=== PATIENT | female | born 1965 | race Caucasian/White ===

== ENCOUNTER 2019-06-28 20:28 | Outpatient (CLI) | payer OTHER, SELFPAY ==
[2019-06-30 15:06] LABS: Quest SARS-CoV-2 RNA NOT DETECTED (NOT DETECTED)
== END 2019-06-28 20:29 | disposition home or self-care (01) ==
LOC: LAB 20:31
PROVIDERS: Family Provider Family Medicine; Visit Provider Nurse Practitioner Family
DX: R50.9 Fever, unspecified (principal); J06.9 Acute upper respiratory infection, unspecified; Z20.828 Contact with and (suspected) exposure to other viral communicable diseases; Z71.89 Other specified counseling
CPT/HCPCS: 87400; 87635

== ENCOUNTER 2019-07-04 16:36 | Outpatient (CLI) | payer OTHER, SELFPAY ==
[2019-07-04 17:09] LABS: Basophils # 0.1 10^3/uL (0.0-0.1); Basophils % 0.8 %; Eosinophils # 0.3 10^3/uL (0.0-0.8); Eosinophils % 3.3 %; Hematocrit 38.8 % (37.0-47.0); Hemoglobin 12.3 g/dL (11.5-15.3); Lymphocytes # 2.4 10^3/uL (0.8-4.8); Lymphocytes % 32.2 %; Mean Corpuscular HGB Conc 31.7 g/dL (30.0-36.0); Mean Corpuscular Hemoglobin 30.8 pg (28.0-34.0); Mean Corpuscular Volume 97.2 fL (81-99); Mean Platelet Volume 9.8 fL (7.4-10.4); Monocytes # 0.9 10^3/uL (0.2-0.9); Monocytes % 11.6 %; Neutrophils # 3.9 10^3/uL (1.8-7.7); Nucleated Red Blood Cells % 0 %; Platelet Count 301 10^3/cmm (130-400); Red Blood Count 3.99 10^6/uL (4.1-5.3); Red Cell Distribution Width 11.9 % (12.1-15.1); White Blood Count 7.5 10^3/uL (4.0-10.0)
[2019-07-04 17:23] LABS: Alanine Aminotransferase 33 U/L (0-33); Albumin Level 4.6 g/dL (3.5-5.2); Alkaline Phosphatase 131 IU/L (35-105); Anion Gap 16.3 (5-19); Aspartate Amino Transferase 24 U/L (0-32); Blood Urea Nitrogen 15 mg/dL (6-20); Calcium 10.4 mg/dL (8.5-10.5); Carbon Dioxide 28 mmol/L (22-29); Chloride 104 mmol/L (98-107); Glucose 93 mg/dL (65-115); Lipase 55 U/L (13-60); Osmolality Calculated 294 mOsm/kg (285-295); Potassium 4.3 mmol/L (3.5-5.1); Sodium 144 mmol/L (136-145); Total Bilirubin 0.6 mg/dL (0.15-1.2); Total Protein 7.6 g/dL (6.6-8.7)
[2019-07-05 03:44] LABS: Erythrocyte Sedimentation Rate 40 mm/hr (0-15)
== END 2019-07-04 16:37 | disposition home or self-care (01) ==
LOC: LAB 16:43
PROVIDERS: PCP Family Medicine; Visit Provider Family Medicine
DX: R50.9 Fever, unspecified (principal)
CPT/HCPCS: 36415; 80053; 83690; 85025; 85651; 86140

== ENCOUNTER 2020-05-16 11:18 | Outpatient (CLI) | payer OTHER, SELFPAY ==
--- NOTE | 2020-05-16 11:20 | MM_ITS ---
WS: [id number] BILATERAL SCREENING MAMMOGRAM WITH CELIA DISPLACEMENT VIEWS. CAD PERFORMED. HISTORY: SCREENING COMPARISON: 02/25/2017 and 07/17/2015 Bilateral craniocaudal and mediolateral like views are performed. Celia displacement views in CC and MLO projection also performed. Breasts composition: There are scattered areas of fibroglandular density. Implants are intact. No suspicious masses or calcifications are identified. MM/[place] [id number] IMPRESSION: BI-RADS: 2-Benign FOLLOW-UP: 1 Year Follow-up
== END 2020-05-16 11:19 | disposition home or self-care (01) ==
LOC: RADSHAW 11:19
PROVIDERS: PCP Family Medicine; Visit Provider Family Medicine
DX: Z12.31 Encounter for screening mammogram for malignant neoplasm of breast (principal)
CPT/HCPCS: 77067

== ENCOUNTER 2020-11-10 08:15 | Emergency (ER) | payer OTHER, SELFPAY ==
[2020-11-10 08:19] VITALS: BP 118/81; PULSE 76; RESP 18; TEMP 36.6; O2SAT 98; BMI 25.0
[2020-11-10 08:27] VITALS: BP 118/81; PULSE 69; RESP 18; O2SAT 98
--- NOTE | 2020-11-10 08:32 | ED_ITS ---
HPI - Allergic Reaction General: Chief complaint: Allergic Reaction Stated complaint: allergic reaction:rash, SOB, throat feels tight Time Seen by Provider: 11/10/20 08:17 Source: patient Mode of arrival: ambulatory Limitations: no limitations History of Present Illness: HPI narrative: Patient is a nice 55-year-old female who presents to ED today with what she believes could be an allergic reaction. Patient states over the past week she has noticed an erythematous pruritic rash to the sides of her bilateral lower back as well as the lateral sides of both of her breasts. She has been treating with topical hydrocortisone cream. She states this morning she woke up and her throat felt tight and scratchy. She is not having any difficulty breathing or swallowing. She has not noticed any tongue or lip swelling. She denies any new household or chemical exposures. She did recently start taking a new multivitamin but discontinued this 4 days ago. MD complaint: other (rash) Onset (ago): day(s) Exposure: unknown Associated symptoms: Reports rash; Deny dizziness, nausea or vomiting Severity: mild Treatment prior to arrival: bronchodilator (pt has hx of asthma so did albuterol) Previous Allergic Reaction History: none Review of Systems Const: Denies: fever(s), chills, body aches, fatigue or malaise Eyes: Denies: change in vision or blurry vision ENMT: Reports: other (scratchy/tight feeling throat); Denies: throat pain, uvular edema, enlarged tonsils, odynophagia or oral sores Card: Denies: chest pain, palpitations, irregular heart rhythm, lightheadedness, syncope or pre-syncope Resp: Denies: dyspnea, productive cough, non-productive cough, pain on inspiration or chest congestion GI: Denies: nausea or vomiting Musc: Denies: neck pain, back pain, extremity pain or joint pain Skin/Breast: Reports: rash Neuro: Denies: headache(s), numbness in extremities, weakness in extremities, sensory changes or dizziness PFS ED PFSH: Social History Smoking and tobacco status: never smoked Physical Exam Const: COMMON NORMALS: no acute distress, average body habitus, patient oriented x3, no limitations, healthy appearing, alert and well nourished GEN ERAL APPEARANCE: cooperative ORIENTATION/CONSCIOUSNESS: Yes awake, Yes oriented to person, Yes oriented to place and Yes oriented to time HENMT: COMMON NORMALS: normocephalic and atraumatic HEAD & SCALP: normal to inspection, normocephalic and atraumatic FACE & SINUS: normal facial exam MOUTH: Normal oral and palatal mucosa present, lip normal and tongue normal THROAT: posterior oropharynx normal, tonsils normal and uvula midline; no uvular edema Eye: GENERAL EYE: appearance normal, both eyes and all related structures Resp: COMMON NORMALS: normal respiratory effort and clear to auscultation bilaterally EFFORT & INSPECTION: Yes able to speak in complete sentences AUSCULTATION: clear to auscultation bilaterally Cardio: COMMON NORMALS: regular rate and regular rhythm RATE: regular rate RHYTHM: regular rhythm Neuro: COMMON NORMALS: patient oriented x3 SENSORIUM/ORIENTATION: Yes alert, Yes oriented to person, Yes oriented to place and Yes oriented to time Skin: SKIN IMAGES (FEMALE): 1. symmetrical areas of patchy erythema 2. 3. 4. similar appearing rash to bilateral lateral aspects of breasts RASHES: rashes noted Course Reevaluation(s): Reevaluation #1: Patient states the itchy/scratchy/tight throat sensation has greatly improved. Vital Signs: Vital signs: Vital Signs Temperature 97.9 F 11/10/20 08:19 Pulse Rate 69 11/10/20 08:27 Respiratory Rate 18 11/10/20 08:27 Blood Pressure 118/81 11/10/20 08:27 Pulse Oximetry 98 11/10/20 08:27 MDM - Allergic Reaction MDM Narrative: Medical decision making narrative: Patient improved with IM steroids. She wanted to hold off on Benadryl at this time secondary to side effect of drowsiness. Will place on 6 day steroid taper. Return to ED precautions given. Discharge Plan Discharge Patient Disposition: Home Clinical Impression: Allergic reaction Qualifiers: Encounter type: initial encounter Qualified Code(s): T78.40XA - Allergy, unspecified, initial encounter Condition: Stable Prescriptions: New prednisone 10 mg tablet 10 mg PO DAILY 6 Days Qty: 21 RF: 0 No Action albuterol sulfate 90 mcg/actuation aerosol powdr breath activated 2 inh INHALATION Q4H PRNRF: 0 acyclovir 200 mg capsule 200 mg PO TID PRNRF: 0 Discharge Orders: Discharge ED (Routine); Ordered 11/10/20 Ordered By: Eliza Delgado Referrals: Kendrick Fuentes DO [Primary Care Provider] - Patient Instructions: Allergic Reaction Coding Level of Care Code ED Residential Property Manager for Chg Fwd Exam Detailed
[2020-11-10 09:14] VITALS: BP 125/73; PULSE 76; RESP 18; O2SAT 99
== END 2020-11-10 09:14 | disposition home or self-care (01) ==
PROVIDERS: Emergency Provider Physician Assistant; PCP Family Medicine
DX: T78.40XA Allergy, unspecified, initial encounter (principal)
CPT/HCPCS: 96372; 99282; J2930

== ENCOUNTER 2021-08-14 08:08 | Outpatient (CLI) | payer OTHER, SELFPAY ==
--- NOTE | 2021-08-14 08:17 | MM_ITS ---
WS: [id number] BILATERAL SCREENING DIGITAL BREAST MAMMOGRAPHY WITH CELIA DISPLACEMENT VIEWS. CAD PERFORMED. HISTORY: SCREENING COMPARISON: 05/16/2020 and 02/25/2017 Bilateral craniocaudal and mediolateral oblique views are performed with tomosynthesis and SM. Celia displacement views in CC and MLO projection also performed. Breasts composition: There are scattered areas of fibroglandular density. Breast implants are intact. No mass or calcification. No suspicious findings. MM/[place] [id number] IMPRESSION: BI-RADS: 2-Benign FOLLOW-UP: 1 Year Follow-up
== END 2021-08-14 08:09 | disposition home or self-care (01) ==
LOC: RAD 08:09
PROVIDERS: PCP Family Medicine; Visit Provider Family Medicine
DX: Z12.31 Encounter for screening mammogram for malignant neoplasm of breast (principal)
CPT/HCPCS: 77063; 77067

== ENCOUNTER 2021-09-19 14:44 | Outpatient (CLI) | payer OTHER, SELFPAY ==
--- NOTE | 2021-09-19 14:30 | MR_ITS ---
WS: [email or web address] MRI CERVICAL SPINE NONCONTRAST HISTORY: M54.12 - Radiculopathy, cervical region COMPARISON: None available. Technique: Multiplanar, multisequence noncontrast imaging of the cervical spine. Normal cervical alignment with no compression fracture or significant disc space narrowing. Signal within the cervical cord is normal. Visualized posterior fossa is unremarkable. Craniocervical junction, C1 and C2 relationship, odontoid process and soft tissues are normal. C2-C3: Normal. C3-C4: Small central disc protrusion without contact on the cord. C4-C5: Very small central disc protrusion with no cord contact or stenosis. C5-C6: Normal. C6-C7: Moderate central disc protrusion. Effacement of CSF but no cord contact. Small LEFT foraminal osteophyte causing mild foraminal narrowing. C7-T1: Normal. Paraspinal soft tissue are normal. MR/MR cervical spin wo con* [id number] IMPRESSION: 1. No high-grade central or foraminal stenosis. 2. Moderate size central disc protrusion at C6-7 with effacement of CSF but no cord contact. 3. LEFT foraminal osteophyte at C6-7 with only mild foraminal narrowing. 4. Small central disc protrusions at C3-4 and C4-5.
--- NOTE | 2021-09-19 16:00 | MR_ITS ---
WS: [email or web address] MRI LUMBAR SPINE NONCONTRAST HISTORY: M54.16 - Radiculopathy, lumbar region COMPARISON: None available. TECHNIQUE: Sagittal and axial multisequence imaging is submitted. Normal lumbar alignment with no compression fractures or marrow edema. Mild disc desiccation and narrowing at L1-2. Conus terminates normally at L1-2 disc level. L1-L2: Mild disc bulging. No stenosis. L2-L3: Normal. L3-L4: Mild ligamentum flavum and facet arthritis. No stenosis. L4-L5: Mild annular disc bulge with a central disc protrusion. Mild narrowing of the subarticular rec esses and foramen. Mild ligamentum flavum hypertrophy. L5-S1: Mild disc bulging with a very small central disc protrusion. No significant contact on the ner ve roots. Paravertebral soft tissues are negative. MR/MR lumbar spine wo con* [id number] IMPRESSION: 1. No significant central or foraminal stenosis. 2. Central disc protrusion at L4-5 with no contact on the nerve roots. Very mi ld narrowing of the subarticular recesses. 3. Small central disc protrusion at L5-S1 with no cord contact.
== END 2021-09-19 14:45 | disposition home or self-care (01) ==
PROVIDERS: PCP Family Medicine; Visit Provider Family Medicine
DX: M54.12 Radiculopathy, cervical region (principal); M51.27 Other intervertebral disc displacement, lumbosacral region; M51.26 Other intervertebral disc displacement, lumbar region
CPT/HCPCS: 72141; 72148

== ENCOUNTER → 2021-10-15 14:49 | Outpatient (BNVA) | payer OTHER, SELFPAY | PROVIDERS: PCP Family Medicine; Visit Provider Orthopaedic Surgery | DX: M47.812 Spondylosis without myelopathy or radiculopathy, cervical region (principal); M47.816 Spondylosis without myelopathy or radiculopathy, lumbar region | CPT/HCPCS: 72050; 72110 ==

== ENCOUNTER → 2021-12-31 17:20 | Outpatient (BNVA) | payer OTHER, SELFPAY | PROVIDERS: PCP Family Medicine; Visit Provider Registered Nurse Neonatal Intensive Care | DX: M25.532 Pain in left wrist (principal) | CPT/HCPCS: 73110 ==

== ENCOUNTER 2022-04-14 09:30 | Outpatient (CLI) | payer OTHER, SELFPAY ==
[2022-04-14 09:48] LABS: Basophils % 0.5 %; Eosinophils # 0.3 10^3/uL (0.0-0.8); Eosinophils % 4.6 %; Hematocrit 40.2 % (37.0-47.0); Hemoglobin 12.9 g/dL (11.5-15.3); Lymphocytes # 2.2 10^3/uL (0.8-4.8); Lymphocytes % 38.8 %; Mean Corpuscular HGB Conc 32.1 g/dL (30.0-36.0); Mean Corpuscular Hemoglobin 31.5 pg (28.0-34.0); Mean Corpuscular Volume 98.3 fl (81-99); Mean Platelet Volume 9.9 fL (7.4-10.4); Monocytes # 0.5 10^3/uL (0.2-0.9); Monocytes % 9.3 %; Neutrophils # 2.65 10^3/uL (1.8-7.7); Neutrophils % 46.6 %; Nucleated Red Blood Cells % 0 %; Platelet Count 201 10^3/cmm (130-400); Red Blood Count 4.09 10^6/uL (4.1-5.3); Red Cell Distribution Width 12.4 % (12.1-15.1); White Blood Count 5.7 10^3/uL (4.0-10.0)
[2022-04-14 10:00] LABS: Estmated Average Glucose 85; Hemoglobin A1C 4.6 % (4.0-6.0)
[2022-04-14 10:18] LABS: Alanine Aminotransferase 21 U/L (0-33); Albumin Level 4.3 g/dL (3.5-5.2); Alkaline Phosphatase 88 U/L (35-105); Anion Gap 15.2 (5-19); Aspartate Amino Transferase 20 U/L (0-32); Blood Urea Nitrogen 14 mg/dL (6-20); Calcium 9.4 mg/dL (8.5-10.5); Carbon Dioxide 27 mmol/L (22-29); Chloride 103 mmol/L (98-107); Cholesterol 234 mg/dL (0-200); Globulin 2.7 g/dL (1.3-4.6); Glomerular Filtration Rate 64.3 mL/min (90-130); Glucose 97 mg/dL (65-115); HDL Cholesterol 71 mg/dL (60-100); LDL Cholesterol Calculated 153 mg/dL (50-129); LDL HDL Ratio 2.15 RATIO (0.00-3.22); Osmolality Calculated 292 mOsm/kg (285-295); Potassium 4.2 mmol/L (3.5-5.1); Sodium 141 mmol/L (136-145); Thyroid Stimulating Hormone 4.31 uIU/mL (0.27-4.20); Total Bilirubin 0.5 mg/dL (0.15-1.2); Triglycerides 50 mg/dL (0-150)
[2022-04-14 11:50] LABS: 25 Hydroxy Vitamin D 30 ng/mL (30-100)
== END 2022-04-14 09:31 | disposition home or self-care (01) ==
PROVIDERS: PCP Family Medicine; Visit Provider Family Medicine
DX: Z01.89 Encounter for other specified special examinations (principal)
CPT/HCPCS: 36415; 80053; 80061; 82306; 83036; 84443; 85025

== ENCOUNTER → 2022-08-01 11:16 | Outpatient (BNVA) | payer OTHER, SELFPAY | PROVIDERS: PCP Family Medicine; Visit Provider Family Medicine | DX: R79.89 Other specified abnormal findings of blood chemistry (principal); J45.909 Unspecified asthma, uncomplicated; R03.0 Elevated blood-pressure reading, without diagnosis of hypertension; E03.9 Hypothyroidism, unspecified | CPT/HCPCS: 84436; 84443; 84481 ==

== ENCOUNTER 2022-08-29 12:04 | Outpatient (CLI) | payer OTHER, SELFPAY ==
--- NOTE | 2022-08-29 12:10 | MM_ITS ---
WS: [email or web address] Bilateral screening 3D tomosynthesis digital mammogram, 08/29/2022 Clinical Data: SCREENING Comparison: 08/14/2021, 05/16/2020, 02/25/2017, 07/17/2015, 07/07/2014, 05/09/2013. Findings: The breast parenchymal pattern shows fibroglandular tissue. No spiculated masses or clustered calcifi cations are seen. The bilateral augmentation mammoplasty implants are intact. There are no secondary signs of carcinoma. MM/[place] [id number] Impression: 1. Negative bilateral mammogram unchanged. 2. Recommend annual screening mammograms. BIRADS: 2-Benign FOLLOW UP: 1 Year Follow-up The CAD receiving dock checker was used.
== END 2022-08-29 12:05 | disposition home or self-care (01) ==
LOC: MOBLMAM 12:05 → RAD 12:08
PROVIDERS: PCP Family Medicine; Visit Provider Family Medicine
DX: Z12.31 Encounter for screening mammogram for malignant neoplasm of breast (principal)
CPT/HCPCS: 77063; 77067

== ENCOUNTER → 2023-02-22 12:33 | Outpatient (BNVA) | payer OTHER, SELFPAY | PROVIDERS: PCP Family Medicine; Visit Provider Emergency Medicine | DX: J18.9 Pneumonia, unspecified organism (principal) | CPT/HCPCS: 87400 ==

== ENCOUNTER → 2023-08-03 09:57 | Outpatient (BNVA) | payer OTHER, SELFPAY | PROVIDERS: PCP Family Medicine; Visit Provider Family Medicine | DX: Z13.6 Encounter for screening for cardiovascular disorders (principal); Z00.00 Encounter for general adult medical examination without abnormal findings; R03.0 Elevated blood-pressure reading, without diagnosis of hypertension; R79.89 Other specified abnormal findings of blood chemistry; J45.909 Unspecified asthma, uncomplicated; E03.9 Hypothyroidism, unspecified | CPT/HCPCS: 80053; 80061; 81000; 84443 ==

== ENCOUNTER 2023-09-10 15:26 | Outpatient (CLI) | payer OTHER, SELFPAY ==
--- NOTE | 2023-09-10 09:00 | MM_ITS ---
WS: [email or web address] BILATERAL SCREENING DIGITAL BREAST MAMMOGRAPHY WITH CELIA DISPLACEMENT VIEWS. CAD PERFORMED. HISTORY: Z12.39 - Encounter for other screening for malignant neop... COMPARISON: 08/29/2022, 08/14/2021 Bilateral craniocaudal and mediolateral oblique views are performed with tomosynthesis and SM. Celia displacement views in CC and MLO projection also performed. Breasts composition: There are scattered areas of fibroglandular density. Implants are prepectoral. Implants are intact. No suspicious masses or calcifications. MM/[place] [place] [id number] IMPRESSION: BI-RADS: 2-Benign FOLLOW-UP: 1 Year Follow-up
== END 2023-09-10 15:27 | disposition home or self-care (01) ==
LOC: RAD 15:27
PROVIDERS: PCP Family Medicine; Visit Provider Family Medicine
DX: Z12.31 Encounter for screening mammogram for malignant neoplasm of breast (principal); R92.323 Mammographic fibroglandular density, bilateral breasts; Z98.82 Breast implant status
CPT/HCPCS: 77063; 77067

== ENCOUNTER → 2023-12-08 14:44 | Outpatient (BNVA) | payer OTHER, SELFPAY | PROVIDERS: PCP Family Medicine; Visit Provider Family Medicine | DX: R79.89 Other specified abnormal findings of blood chemistry (principal); R41.3 Other amnesia; J45.20 Mild intermittent asthma, uncomplicated; E03.9 Hypothyroidism, unspecified | CPT/HCPCS: 80053; 82607; 84443; 85025 ==

== ENCOUNTER → 2024-04-05 09:21 | Outpatient (BNVA) | payer OTHER, SELFPAY | PROVIDERS: PCP Family Medicine; Referring Provider Family Medicine; Visit Provider Psychiatry & Neurology Neurology | DX: R41.3 Other amnesia (principal); E55.9 Vitamin D deficiency, unspecified | CPT/HCPCS: 0346U; 36415; 82306; 82542; 82746; 83090; 83520; 83735; 85210; 85300; 85303; 85306; 85613; 85730; 86146; 86147; 86592 ==

== ENCOUNTER 2024-04-29 10:53 | Outpatient (CLI) | payer OTHER, SELFPAY ==
--- NOTE | 2024-04-29 12:39 | MR_ITS ---
WS: [email or web address] MRI BRAIN WITH AND WITHOUT CONTRAST HISTORY: R41.3 - Other amnesia COMPARISON: None available. TECHNIQUE: Multiplanar imaging performed through the brain with MultiHance 14 ml's IV. No acute infarcts are seen. Thomas-white matter differentiation is well preserved. Minimal small vessel ischemic changes and very mild volume loss. No prior infarct. No susceptibility artifacts or prior lacunar infarcts. No hippocampal atrophy. Ventricles and extra-axial spaces are normal. Clivus and pituitary gland are normal. Visualized posterior fossa and brainstem are also normal. Postcontrast images are negative for masses or vascular malformations. Dural venous sinuses are normal. Paranasal sinuses: Well aerated with no significant disease. Mastoid air cells: Normal. Calvarium and scalp: Normal. MR/MR head wo/w con [id number] IMPRESSION: 1. No acute infarct or hemorrhage. 2. No enhancing mass or vascular malformation. 3. Minimal small vessel disease and atrophy. 4. No hippocampal atrophy.
--- NOTE | 2024-04-29 13:45 | MR_ITS ---
WS: [email or web address] MRA CAROTID ARTERIES HISTORY: R41.3 - Other amnesia COMPARISON: None available. TECHNIQUE: MRA is performed with intravenous gadolinium. MIP and source images are reviewed. Right: Normal common, internal and external carotid arteries. No plaque or significant stenosis. Left: Normal common, internal/external carotid arteries. No plaque or significant stenosis. Subclavian Arteries: Normal. Vertebral Arteries: Normal vertebral arteries. RIGHT vertebral artery is smaller caliber. Both vertebral arteries are patent. MR/MR angio neck w con* [id number] IMPRESSION: Normal MR angiogram carotid arteries.
[2024-04-29] MEDS: gadobenate dimeglumine 20 mL vial 14 ML IV (13:47)
--- NOTE | 2024-04-29 14:15 | MR_ITS ---
WS: [email or web address] MRA ANGIOGRAPHY [place] HISTORY: R41.3 - Other amnesia COMPARISON: None available. TECHNIQUE: 3-D MR angiography is performed of the [place]. All images are reviewed including source images. Distal vertebral and basilar arteries are intact with no significant stenosis or plaque. Tiny fenestration RIGHT vertebral artery. Posterior cerebral arteries are normal course and caliber. Posterior communicating arteries are both patent. Posterior communicating arteries are small but patent. Intracranial portion of the internal carotid arteries are normal course and caliber. No significant atherosclerosis, stenosis or aneurysm identified. Middle and anterior cerebral arteries are both patent with no significant disease. Anterior communicating artery is also normal. MR/MR angio head wo con [id number] IMPRESSION: Normal MRA [place].
== END 2024-04-29 10:54 | disposition home or self-care (01) ==
PROVIDERS: PCP Family Medicine; Visit Provider Psychiatry & Neurology Neurology
DX: R41.3 Other amnesia (principal); E55.9 Vitamin D deficiency, unspecified; R93.0 Abnormal findings on diagnostic imaging of skull and head, not elsewhere classified
CPT/HCPCS: 70544; 70548; 70553; A9577

== ENCOUNTER → 2024-08-29 14:21 | Outpatient (BNVA) | payer OTHER, SELFPAY | PROVIDERS: PCP Family Medicine; Visit Provider Psychiatry & Neurology Neurology | DX: R41.3 Other amnesia (principal) | CPT/HCPCS: 36415; 80053; 84439; 84443; 85025 ==

== ENCOUNTER 2024-10-14 16:00 | Oncology outpatient (recurring) (ONCR) | payer OTHER, SELFPAY ==
[2024-09-21 08:32] VITALS: BP 113/69; PULSE 67; RESP 16; TEMP 36.7; O2SAT 97
[2024-09-21] MEDS: donanemab-azbt 350 MG in sodium chloride 0.9% 50 ML 140 MG IV (10:19)
[2024-09-21 11:15] VITALS: BP 105/68; PULSE 78; RESP 18; TEMP 36.6; O2SAT 98
--- NOTE | 2024-10-14 16:00 | MRR_ITS ---
PROCEDURE INFORMATION: Exam: MR Head Without Contrast Exam date and time: 10/14/2024 4:10 PM Age: 59 years old Clinical indication: Condition or disease; Other: Alzheimers TECHNIQUE: Imaging protocol: Magnetic resonance imaging of the head without contrast. COMPARISON: MR head wo/w con [id number] 04/29/2024 1:00 PM FINDINGS: Brain: No acute infarct. No hemorrhage. No significant white matter disease. No edema. Minimal global parenchymal volume loss. Cerebral ventricles: Normal. No ventriculomegaly. Bones: Unremarkable. Paranasal sinuses: Normal as visualized. No acute sinusitis. Mastoid air cells: Normal as visualized. No mastoid effusion. Orbital cavities: Unremarkable. Soft tissues: Unremarkable. MR/MR head wo con* [id number] IMPRESSION: No acute intracranial abnormality.
== END 2024-10-17 08:00 | disposition home or self-care (01) ==
LOC: RAD 10-15 → ONCMED 10-18 07:47
PROVIDERS: PCP Family Medicine; Visit Provider Psychiatry & Neurology Neurology
DX: G30.9 Alzheimer's disease, unspecified; F02.80 Dementia in other diseases classified elsewhere, unspecified severity, without behavioral disturbance, psychotic disturbance, mood disturbance, and anxiety; Z53.9 Procedure and treatment not carried out, unspecified reason
CPT/HCPCS: 70551; 96365; J0175; J7050; J9999

== ENCOUNTER 2024-11-09 07:31 | Oncology outpatient (recurring) (ONCR) | payer OTHER, SELFPAY ==
[2024-10-19] MEDS: donanemab-azbt 700 MG in sodium chloride 0.9% 50 ML 180 MG IV (09:45)
[2024-10-19 10:34] VITALS: BP 105/65; PULSE 60; RESP 16; TEMP 36.6; O2SAT 98
--- NOTE | 2024-11-09 07:15 | MR_ITS ---
WS: [email or web address] MRI BRAIN WITHOUT CONTRAST HISTORY: G30.9 - Alzheimer's disease, unspecified COMPARISON: 10/14/2024, 04/29/2024 TECHNIQUE: Diffusion imaging, multiplanar T1, T2 and FLAIR imaging obtained. No evidence for acute infarct or hemorrhage. Thomas-white matter differentiation is normal. Very mild cerebral atrophy and small vessel disease. No progression since 10/14/2024 or 04/29/2024. No new white matter abnormalities. No hippocampal atrophy. Ventricles and extra-axial spaces are normal. No inferior displacement of cerebellar tonsils. The sella turcica and pituitary gland are unremarkable. Dural venous sinuses and [place] demonstrate no abnormality on this unenhanced studies. Paranasal sinuses: Clear. Mastoid air cells: Normal. Calvarium and scalp: Intact. MR/MR head wo con* [id number] IMPRESSION: 1. No new infarct or diffusion abnormalities. 2. Minimal small vessel disease is stable. 3. Minimal cerebral atrophy is stable. 4. No hippocampal atrophy.
== END 2024-11-15 23:59 | disposition home or self-care (01) ==
LOC: ONCMED 15:16 → RAD 11-10 → ONCMED 11-11 08:35
PROVIDERS: PCP Family Medicine; Visit Provider Psychiatry & Neurology Neurology
DX: G30.9 Alzheimer's disease, unspecified; F02.80 Dementia in other diseases classified elsewhere, unspecified severity, without behavioral disturbance, psychotic disturbance, mood disturbance, and anxiety; G31.89 Other specified degenerative diseases of nervous system; R93.0 Abnormal findings on diagnostic imaging of skull and head, not elsewhere classified; Z53.9 Procedure and treatment not carried out, unspecified reason
CPT/HCPCS: 70551; 96413; J0175; J7050

== ENCOUNTER 2024-12-14 08:30 | Oncology outpatient (recurring) (ONCR) | payer OTHER, SELFPAY ==
[2024-11-16 08:28] VITALS: BP 108/71; PULSE 77; RESP 16; TEMP 36.3; O2SAT 98
[2024-11-16] MEDS: [UNRECOGNIZED DRUG - OTHER] IV (09:08)
[2024-11-16] MEDS: SODIUM CHLORIDE 0.9% IV (09:08)
[2024-11-16 09:48] VITALS: BP 118/77; PULSE 60; RESP 16; TEMP 36.6; O2SAT 100
--- NOTE | 2024-12-05 08:00 | MR_ITS ---
WS: [email or web address] MRI BRAIN WITHOUT CONTRAST HISTORY: G30.9 - Alzheimer's disease, unspecified COMPARISON: None available. TECHNIQUE: Diffusion imaging, multiplanar T1, T2 and FLAIR imaging obtained. No evidence for acute infarct or hemorrhage. Thomas-white matter differentiation is normal. No hippocampal atrophy. Mild cerebral and cerebellar atrophy with no prior infarcts. Minimal small vessel disease. Ventricles and extra-axial spaces are normal. No inferior displacement of cerebellar tonsils. The sella turcica and pituitary gland are unremarkable. Dural venous sinuses and [place] demonstrate no abnormality on this unenhanced studies. Paranasal sinuses: Clear. Mastoid air cells: Normal. Calvarium and scalp: Intact. MR/MR head wo con* [id number] IMPRESSION: 1. No acute infarct or hemorrhage. 2. Mild cerebral and cerebellar atrophy with minimal small vessel disease. 3. No hippocampal atrophy.
[2024-12-14 08:47] VITALS: BP 119/80; PULSE 65; TEMP 36.1; O2SAT 98
[2024-12-14] MEDS: donanemab-azbt 1,400 MG in sodium chloride 0.9% (100 ml) 100 ML 360 MG IV (09:32)
[2024-12-14 10:18] VITALS: BP 112/70; PULSE 53; TEMP 36.4; O2SAT 99
== END 2024-12-16 23:59 | disposition home or self-care (01) ==
PROVIDERS: PCP Family Medicine; Visit Provider Psychiatry & Neurology Neurology
DX: Z53.9 Procedure and treatment not carried out, unspecified reason; Z00.6 Encounter for examination for normal comparison and control in clinical research program; G30.9 Alzheimer's disease, unspecified; F02.80 Dementia in other diseases classified elsewhere, unspecified severity, without behavioral disturbance, psychotic disturbance, mood disturbance, and anxiety; Z79.899 Other long term (current) drug therapy
CPT/HCPCS: 70551; 96413; J0175; J7050; J9999

== ENCOUNTER 2025-01-11 08:26 | Oncology outpatient (recurring) (ONCR) | payer OTHER, SELFPAY ==
[2025-01-11] MEDS: donanemab-azbt 1,400 MG in sodium chloride 0.9% (100 ml) 100 ML 360 MG IV (09:18)
[2025-01-11 09:57] VITALS: BP 108/75; PULSE 61; TEMP 36.2; O2SAT 98
== END 2025-01-15 23:59 | disposition home or self-care (01) ==
PROVIDERS: PCP Family Medicine; Visit Provider Specialist
DX: G30.9 Alzheimer's disease, unspecified (principal); F02.80 Dementia in other diseases classified elsewhere, unspecified severity, without behavioral disturbance, psychotic disturbance, mood disturbance, and anxiety; G31.89 Other specified degenerative diseases of nervous system; Z00.6 Encounter for examination for normal comparison and control in clinical research program; Z79.899 Other long term (current) drug therapy
CPT/HCPCS: 96413; J0175; J7050

== ENCOUNTER 2025-02-08 08:31 | Oncology outpatient (recurring) (ONCR) | payer OTHER, SELFPAY ==
[2025-02-08 08:51] VITALS: BP 107/63; PULSE 74; TEMP 36.3; O2SAT 98
[2025-02-08] MEDS: donanemab-azbt 1,400 MG in sodium chloride 0.9% (100 ml) 100 ML 360 MG IV (09:16)
[2025-02-08 10:17] VITALS: BP 94/58; PULSE 56; TEMP 35.9; O2SAT 96
== END 2025-02-15 23:59 | disposition home or self-care (01) ==
LOC: ONCMED 08:31
PROVIDERS: PCP Family Medicine; Visit Provider Specialist
DX: Z00.6 Encounter for examination for normal comparison and control in clinical research program (principal); G30.9 Alzheimer's disease, unspecified; F02.80 Dementia in other diseases classified elsewhere, unspecified severity, without behavioral disturbance, psychotic disturbance, mood disturbance, and anxiety; Z79.899 Other long term (current) drug therapy
CPT/HCPCS: 96413; J0175; J7050